=== PATIENT | female | born 1980 | race Hispanic/Latino ===

== ENCOUNTER 2019-02-23 18:12 | Emergency (ER) | payer SELFPAY ==
[2019-02-23] MEDS ORDERED: EPINEPHrine 1 mg/ml (1:1000) Inj SC STA (19:17)
[2019-02-23] MEDS ORDERED: DiphenhydrAMINE 50 mg/ml Inj IVP STA (19:17)
[2019-02-23] MEDS ORDERED: Sodium Chloride 0.9% 1,000 ML IV STA (19:20)
[2019-02-23 19:22] VITALS: RESP 18
--- NOTE | 2019-02-23 19:25 | ED PDOC ---
Arrival/HPI - General Chief Complaint: Allergic Reaction Historian: Patient - History of Present Illness Narrative History of Present Illness (Text): 02/23/19 19:18 A 38 year old female presents to the emergency department with a complaint of 20 day duration rash. The patient notes that about 20 days ago she was seen in an urgent care for possible strep throat. She was not tested for strep, but was given Amoxicillin. Patient notes that she has taken Amoxicillin in the past, but this time, she broke out in a rash after the 8th day of taking it and stopped the medication. She notes that she went back to the urgent care and was prescribed Prednisone for 4 days. She notes that after the 4 days, the improving rash came back. She then went back to the urgent care and was prescribed Prednisone again, but for 9 days, the rash mildly improved. She reports that today she waiting to take the last Prednisone pill, but by 12 pm the rash came back and she then took the last pill. The patient reports no changes in diet, makeup, routine. She reports that the rash is itchy. The patient has been taking Benadryl for her symptoms with minimal relief. Patient also states that she had noticed slight irritation of her throat, but denies wheezing. She also reports perioral swelling. The patient denies fevers, chills, headache, dizziness, chest pain, shortness of breath, dyspnea on exertion, cough, abdominal pain, nausea, vomiting, diarrhea, back pain, neck pain, urinary/bowel changes, or any other complaint. Time/Duration: Other (20 days) Symptom Onset: Sudden Symptom Course: Unchanged Activities at Onset: Rest, Light Context: Home Past Medical History - Provider Review Nursing Documentation Reviewed: Yes - Psychiatric Hx Substance Use: No - Anesthesia Hx Anesthesia: No Hx Anesthesia Reactions: No Hx Malignant Hyperthermia: No Family/Social History - Physician Review Nursing Documentation Reviewed: Yes Family/Social History: No Known Family HX Smoking Status: Never Smoked Hx Alcohol Use: No Hx Substance Use: No Allergies/Home Meds Allergies/Adverse Reactions: Allergies amoxicillin Allergy (Verified 02/23/19 19:08) RASH Review of Systems - Physician Review All systems were reviewed & negative as marked: Yes - Review of Systems Constitutional: absent: Fevers Respiratory: absent: SOB, Cough Cardiovascular: absent: Chest Pain, FABIAN Gastrointestinal: absent: Abdominal Pain, Stool Changes, Diarrhea, Nausea, Vomiting Genitourinary Female: absent: Urine Output Changes Musculoskeletal: absent: Back Pain, Neck Pain Skin: Rash Neurological: absent: Headache, Dizziness Physical Exam Vital Signs Reviewed: Yes Temperature: Afebrile Blood Pressure: Normal Pulse: Tachycardic Respiratory Rate: Normal Appearance: Positive for: Well-Appearing, Non-Toxic, Comfortable Pain Distress: None Mental Status: Positive for: Alert and Oriented X 3 - Systems Exam Head: Present: Atraumatic, Normocephalic Pupils: Present: PERRL Extroacular Muscles: Present: EOMI Conjunctiva: Present: Normal Mouth: Present: Moist Mucous Membranes Neck: Present: Normal Range of Motion Respiratory/Chest: Present: Clear to Auscultation, Good Air Exchange. No: Respiratory Distress, Accessory Muscle Use, Wheezes Cardiovascular: Present: Regular Rate and Rhythm, Normal S1, S2. No: Murmurs Abdomen: No: Tenderness, Distention, Peritoneal Signs Back: Present: Normal Inspection Upper Extremity: Present: Normal Inspection. No: Cyanosis, Edema Lower Extremity: Present: Normal Inspection. No: Edema Neurological: Present: GCS=15, CN II-XII Intact, Speech Normal Skin: Present: Warm, Dry, Rashes (Multiple blanching urticaria lesions on arms, back, legs, face, and chest.), Normal Color Psychiatric: Present: Alert, Oriented x 3, Normal Insight, Normal Concentration Medical Decision Making ED Course and Treatment: 02/23/19 19:29 Impression: A 38 year old female presents to the emergency department with a complaint of a 20 day duration rash s/p taking amoxicillin. Plan: -- Benadryl, Epinephrine, Pepcid, SOLU- Medrol, IV Fluids -- Reassess and disposition Progress Notes: 02/23/19 19:31 - Scribe Statement The provider has reviewed the documentation as recorded by the Scribe Marilee Ayon Provider Scribe Attestation: All medical record entries made by the Scribe were at my direction and personally dictated by me. I have reviewed the chart and agree that the record accurately reflects my personal performance of the history, physical exam, medical decision making, and the department course for this patient. I have also personally directed, reviewed, and agree with the discharge instructions and disposition. Disposition/Present on Arrival - Present on Arrival Any Indicators Present on Arrival: No History of DVT/PE: No History of Uncontrolled Diabetes: No Urinary Catheter: No History of Decub. Ulcer: No History Surgical Site Infection Following: None - Disposition Have Diagnosis and Disposition been Completed?: Yes Diagnosis: Allergic reaction caused by a drug Disposition: HOME/ ROUTINE Disposition Time: 20:03 Patient Plan: Discharge Condition: STABLE Discharge Instructions (ExitCare): Adverse Drug Reactions, Adult (DC), Allergy Skin Testing Print Language: AFGHAN Additional Instructions: All medical record entries made by the Scribe were at my direction and personally dictated by me. I have reviewed the chart and agree that the record accurately reflects my personal performance of the history, physical exam, medical decision making, and the department course for this patient. I have also personally directed, reviewed, and agree with the discharge instructions and disposition. Please schedule an appointment with the vocational counselor Please STOP taking the amoxacillin and avoid using any creams, makeup or scented perfumes on your body Prescriptions: DiphenhydrAMINE [Benadryl] 50 mg PO Q6H #10 cap Epinephrine HCl [Epipen Auto-Injector] 0.3 mg MR PRN PRN #1 ml PRN Reason: Anaphylaxis Famotidine [Pepcid] 40 mg PO Q6H #10 tablet Methylprednisolone [Medrol Dose Pack (21 tabs)] 4 mg PO DAILY #21 mg Referrals: Emanuel Stephenson MD [Medical Doctor] - Follow up with primary Madhavi Miles MD [Medical Doctor] - Follow up with primary Eduar Retana MD [Medical Doctor] - Follow up with primary Forms: [employer] (Arabic), WORK NOTE
[2019-02-23 21:03] VITALS: BP 141/63; PULSE 92; TEMP 98; O2SAT 100
== END 2019-02-23 21:00 | disposition home or self-care (01) ==
LOC: ED 18:12
DX: L27.0 Generalized skin eruption due to drugs and medicaments taken internally (principal); T36.0X5A Adverse effect of penicillins, initial encounter; Y92.009 Unspecified place in unspecified non-institutional (private) residence as the place of occurrence of the external cause
CPT/HCPCS: 86308; 87070; 87430; 96372; 96374; 96375; 99283; J0171; J1200; J2930; J7030